=== PATIENT | female | born 1955 | race Caucasian/White ===

== ENCOUNTER → 2021-01-30 | Outpatient (CLI) | payer BC, OTHER | LOC: HEART 5 13:46 | DX: R00.2 Palpitations (principal); I49.8 Other specified cardiac arrhythmias ==

== ENCOUNTER → 2021-02-27 | Outpatient (CLI) | payer BC, OTHER | LOC: HEART 5 11:00 | DX: R00.2 Palpitations (principal) ==

== ENCOUNTER → 2021-04-01 | Outpatient (CLI) | payer BC, OTHER | LOC: HEART 5 03-27 09:00 | DX: I08.3 Combined rheumatic disorders of mitral, aortic and tricuspid valves (principal); R00.2 Palpitations | CPT/HCPCS: 93306 ==

== ENCOUNTER 2021-11-17 03:56 | Emergency (ER) | payer BC ==
[2021-11-17 06:50] LABS: HEMOGLOBIN 12.8 gm/dl (12.3-15.3); RED BLOOD COUNT 4.39 M/UL (4.00-5.10); WHITE BLOOD COUNT 11.4 K/UL (4.5-11.0)
[2021-11-17 07:24] LABS: BUN/CREATININE RATIO 19 (0-10)
[2021-11-17] MEDS ORDERED: BUSPIRONE HCL5 MG PO (10:16)
== END 2021-11-17 10:47 | disposition home or self-care (01) ==
LOC: ER1 03:56
PROVIDERS: Physician Assistant
DX: R07.89 Other chest pain (principal); R00.2 Palpitations; R94.6 Abnormal results of thyroid function studies; K21.9 Gastro-esophageal reflux disease without esophagitis; E78.5 Hyperlipidemia, unspecified; Z79.899 Other long term (current) drug therapy; Z88.2 Allergy status to sulfonamides; Z88.5 Allergy status to narcotic agent; Z88.8 Allergy status to other drugs, medicaments and biological substances
CPT/HCPCS: 71045; 80053; 82550; 82553; 83735; 83874; 84439; 84443; 84484; 85025; 93005; 93242; 99285

== ENCOUNTER → 2022-03-27 | Outpatient (CLI) | payer MEDICARE, OTHER ==
[~2022-03-27] MED LIST: BUSPIRONE HCL5 MG PO
== END ==
LOC: KOH-I 14:54
DX: M54.9 Dorsalgia, unspecified (principal); M47.816 Spondylosis without myelopathy or radiculopathy, lumbar region
CPT/HCPCS: 72070; 72100

== ENCOUNTER → 2022-06-04 | Outpatient (CLI) | payer MEDICARE, OTHER | LOC: KOH-I 14:36 | DX: M25.50 Pain in unspecified joint (principal) | CPT/HCPCS: 73120; 73620 ==